=== PATIENT | female | born 1965 | race African-American/Black ===

== ENCOUNTER 2016-10-15 12:18 | Emergency (ER) | payer OTHER ==
[2016-10-15 12:23] VITALS: BMI 30.9
--- NOTE | 2016-10-15 12:49 | PDOC ---
History of Present Illness - General Chief Complaint: Palpitations Stated Complaint: PALPITATIONS Time Seen by Provider: 10/15/16 12:24 History Source: Patient - History of Present Illness Initial Comments: 10/15/16 12:57 CC: Palpitations Patient is a 51 y.o. female with a PMH of Graves Disease and SVT who presents to our facility today c/o palpitations and lightheadedness. 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 Patient denies any syncopal episode, chest pain or shortness of breath. Patient notes she has a h/o Graves Disease for which she was initially on a beta rand and Methamiazole however both were discontinued in 2015. Past History - Past Medical History Allergies/Adverse Reactions: Allergies Allergy/AdvReac Type Severity Reaction Status Date / Time Penicillins Allergy Verified 10/15/16 12:23 Home Medications: Ambulatory Orders Albuterol Sulfate Inhaler - [Ventolin Hfa Inhaler -] 1 - 2 inh PO Q4H 10/15/16 Atorvastatin Ca [Lipitor] 10 mg PO HS 10/15/16 Folic Acid - 1 mg PO DAILY 10/15/16 Lisinopril 10 mg PO DAILY 10/15/16 Metoprolol Succinate [Toprol Xl] 50 mg PO DAILY 10/15/16 Montelukast Na [Singulair -] 10 mg PO HS 10/15/16 Asthma: Yes Cardiac Disorders: Yes (SVT) HTN: Yes - Surgical History Abdominal Surgery: Yes (HERNIA REPAIR) - Psycho/Social/Smoking Cessation Hx Suicidal Ideation: No Smoking History: Never smoked Information on smoking cessation initiated: No Hx Alcohol Use: No Drug/Substance Use Hx: No Substance Use Type: None Review of Systems - Review of Systems Constitutional: No: Chills, Fever HEENTM: No: Blurred Vision, Throat Pain Respiratory: No: Cough, Orthopnea Cardiac (ROS): Yes: Lightheadedness, Palpitations. No: Chest Pain ABD/GI: No: Constipated, Diarrhea *Physical Exam - Vital Signs Last Vital Signs Temp Pulse Resp BP Pulse Ox 97.6 F 170 H 18 96/57 99 10/15/16 12:20 10/15/16 12:20 10/15/16 12:20 10/15/16 12:20 10/15/16 12:20 - Physical Exam General Appearance: Yes: Nourished, Appropriately Dressed HEENT: positive: EOMI, RONALD Neck: positive: Normal Thyroid, Supple Respiratory/Chest: positive: Lungs Clear, Normal Breath Sounds Cardiovascular: positive: Regular Rhythm, Regular Rate, S1, S2 Gastrointestinal/Abdominal: positive: Normal Bowel Sounds, Soft Extremity: positive: Normal Capillary Refill, Normal Inspection Neurologic: positive: service support representative II-XII NML intact, Fully Oriented, Alert ED Treatment Course - LABORATORY CBC & Chemistry Diagram: 10/15/16 13:13 10/15/16 13:13 Medical Decision Making - Medical Decision Making Patient is a 48 y.o. female who presents for palpitations. Patient's initial HR 170's at triage, during time of PE, HR resolved to 70's. Initial DDx includes SVT vs. Anxiety vs. ACS. EKG (reviewed by cardiology) showed NSR with no ST elevations. Patient's labs significant for elevated TSH and low T4 inconsistent with Graves Disease. 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 Patient stated she planned to see her PCP tomorrow (10/16) and was given a work note accordingly. Patient was advised to return to the ED should her symptoms resolve or she experience chest pain, shortness of breath, or severe discomfort. *DC/Admit/Observation/Transfer Diagnosis at time of Disposition: Tachycardia - Discharge Dispostion Disposition: HOME Condition at time of disposition: Good Admit: No - Referrals Referrals: Ananda Francisco [Primary Care Provider] - - Patient Instructions Printed Discharge Instructions: DI for Paroxysmal Supraventricular Tachycardia , DI for Tachycardia, DI for Graves Disease Additional Instructions: You were evaluated and treated for elevated heart rate, tachycardia. Your labs , attached here, show an elevated TSH and a low T4. Please take these lab values when being evaluated by your primary care physician tomorrow. Please return to the ED should you experience fever, chills, shortness of breath or severe discomfort. - Post Discharge Activity Work/School Note: Back to Work
[2016-10-15] MEDS ORDERED: SODIUM CHLORIDE 1,000 ML IV STA (13:31)
[2016-10-15 13:32] LABS: BASOPHIL 0.8 % (0-2.0); EOSINOPHIL 2.9 % (0-4.5); MCH 26.8 pg (25.7-33.7); MCHC 33.8 g/dl (32.0-36.0); MEAN CELL VOLUME 79.2 fl (80-96); MEAN PLT VOLUME 8.3 fl (7.5-11.1); PLATELET COUNT 365 K/MM3 (134-434); RDW 14.9 % (11.6-15.6); WHITE BLOOD COUNT 11.3 K/mm3 (4.0-10.0)
[2016-10-15 14:17] LABS: ALBUMIN 3.7 g/dl (3.4-5.0); ALK PHOS 132 U/L (45-117); ANION GAP 7 (8-16); BILIRUBIN,TOTAL 0.5 mg/dL (0.2-1.0); CALCIUM 9.3 mg/dL (8.5-10.1); CO2 26 mmol/L (21-32); CREATININE 0.9 mg/dL (0.55-1.02); GLUCOSE,RANDOM 72 mg/dL (74-106); SGPT/ALT 21 U/L (12-78); TOT PROT 7.8 g/dl (6.4-8.2)
[2016-10-15 14:22] LABS: ANION GAP 9 (8-16); CALCIUM 9.4 mg/dL (8.5-10.1); CO2 24 mmol/L (21-32); GLUCOSE,RANDOM 72 mg/dL (74-106); SGOT/AST 34 U/L (15-37)
--- NOTE | 2016-10-15 15:07 | PDOC ---
Attending Attestation - Resident Resident Name: Olga Christensen - ED Attending Attestation I have performed the following: I have examined & evaluated the patient, The case was reviewed & discussed with the resident, I agree w/resident's findings & plan, Exceptions are as noted - HPI HPI: 10/15/16 15:00 51 F with h/o grave's disease, SVT, presenting to ER with palpitations. Pt states that she was at work when the episode began. SHe states that she was under a lot of stress, and she believes this triggered the episode. Pt denies ever having CP/SOB. Endorses mild lightheadedness without syncope. She states that her symptoms persisted until she arrived to ER and abruptly improved while patient was being triaged. Pt now denies any complaints whatsoever. Denies palpitations. Pt denies substance use, no cocaine, no ETOH. Drinks 1 cup coffee per day. Pt denies F/C/N/V/D. Pt is followed by gynaecological oncologist Dr. Whitaker, who was previously treating her SVT with medication. They had discussed ablation but deferred it due to being well managed on meds. - Physicial Exam PE: 10/15/16 15:04 "GENERAL: Awake, alert, and fully oriented, in no acute distress HEAD: No signs of trauma EYES: PERRLA, EOMI, sclera anicteric, conjunctiva clear ENT: Auricles normal inspection, hearing grossly normal, nares patent, oropharynx clear without exudates. Moist mucosa NECK: Normal ROM, supple, no lymphadenopathy, JVD, or masses LUNGS: Breath sounds equal, clear to auscultation bilaterally. No wheezes, and no crackles HEART: Regular rate and rhythm, normal S1 and S2, no murmurs, rubs or gallops ABDOMEN: Soft, nontender, normoactive bowel sounds. No guarding, no rebound. No masses EXTREMITIES: Normal range of motion, no edema. No clubbing or cyanosis. No cords, erythema, or tenderness NEUROLOGICAL: Cranial nerves II through XII grossly intact. Normal speech, normal gait SKIN: Warm, Dry, normal turgor, no rashes or lesions noted. " - Medical Decision Making 10/15/16 15:21 51 F with h/o grave's, SVT presenting to ER with transient episode of palpitations. HR was 170 in triage, no EKG obtained at the time. Now HR 80s, EKG in normal sinus. Pt likely went into SVT and broke spontaneously. Will check labs, including thyroid function, and monitor pt. - Labs, TSH - lunchroom monitor - F/u cardiology if labs wnl Heart Score/ECG Review - ECG Impressions Comment:: 10/15/16 15:07 NSR rate 90s, no ELSIE/STDs, no TWIs, RBBB
[2016-10-15 15:36] LABS: FREE T4 0.65 ng/dl (0.76-1.46); THYROID STIMULATING HORMONE 5.94 uIU/ml (0.358-3.74)
--- NOTE | 2016-10-15 15:45 | EKG ---
Test Reason : Blood Pressure : / mmHG Vent. Rate : 094 BPM Atrial Rate : 094 BPM P-R Int : 184 ms QRS Dur : 130 ms QT Int : 376 ms P-R-T Axes : 069 -29 064 degrees QTc Int : 470 ms NORMAL SINUS RHYTHM RIGHT BUNDLE BRANCH BLOCK ABNORMAL ECG NO PREVIOUS ECGS AVAILABLE Confirmed by GELACIO BERMEO, SHERI ([id number]) on 10/15/2016 3:45:27 PM Referred By: Confirmed By:SHERI BRIZUELA MD
[2016-10-15 18:18] VITALS: BP 135/67; PULSE 77; TEMP 97.8
== END 2016-10-15 18:18 | disposition home or self-care (01) ==
LOC: JER 12:18
PROC: 3E0337Z Introduction of Electrolytic and Water Balance Substance into Peripheral Vein, Percutaneous Approach (ICD-10-PCS; principal; 2016-10-15)
DX: R00.0 Tachycardia, unspecified (principal); E05.00 Thyrotoxicosis with diffuse goiter without thyrotoxic crisis or storm
CPT/HCPCS: 36415; 80048; 80053; 84439; 84443; 85025; 93005; 93010; 99285-25

== ENCOUNTER 2017-06-03 13:13 | Emergency (ER) | payer OTHER ==
[2017-06-03 13:20] VITALS: TEMP 98; BMI 32.6
[2017-06-03] MEDS ORDERED: ADENOSINE 6 MG/2 ML VIAL IVPUSH ONE ×2 (13:27→13:36)
[2017-06-03] MEDS ORDERED: SODIUM CHLORIDE 1,000 ML IV STA (13:38)
--- NOTE | 2017-06-03 13:46 | PDOC ---
History of Present Illness - General Chief Complaint: Palpitations Stated Complaint: RAPID HEARTBEAT Time Seen by Provider: 06/03/17 13:24 - History of Present Illness Initial Comments: 06/03/17 14:15 The patient is a 52 year old female with a history of Hypothyroidism, SVT who presents for evaluation of rapid heart rate. The patient reports that she was at work today when she experienced the sensation that her heart rate increased similar to her prior episodes of SVT. She states that she forgot to take her metoprolol earlier this morning and took it at the onset of symptoms. She attempted to splash cold water on her face and put her head between her legs which did not help resolve her symptoms prompting her presentation to the ED for evaluation. 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 She otherwise denies fevers, chills, SOB, chest pain, lightheadedness, dizziness, nausea, vomiting, abdominal pain, or changes with urination or bowel movements. Past History - Past Medical History Allergies/Adverse Reactions: Allergies Allergy/AdvReac Type Severity Reaction Status Date / Time Penicillins Allergy Verified 06/03/17 13:20 Home Medications: Ambulatory Orders Atorvastatin Ca [Lipitor] 10 mg PO HS 10/15/16 Lisinopril 10 mg PO DAILY 10/15/16 Metoprolol Succinate [Toprol Xl] 50 mg PO DAILY 10/15/16 Levothyroxine [Synthroid -] 25 mcg PO DAILY 06/03/17 Asthma: Yes Cardiac Disorders: Yes (SVT) COPD: No HTN: Yes - Surgical History Abdominal Surgery: Yes (HERNIA REPAIR) - Suicide/Smoking/Psychosocial Hx Smoking History: Never smoked Information on smoking cessation initiated: No Hx Alcohol Use: No Drug/Substance Use Hx: No Substance Use Type: None Review of Systems - Review of Systems Comments:: 06/03/17 14:19 Constitutional: No fevers, chills, fatigue, malaise HEENT: No Rhinorrhea, nasal congestion, visual changes Cardiovascular: Palpitations, Rapid Heart Rate. No chest pain, syncope, lightheadedness Respiratory: No Cough, SOB, Hemoptysis, Gastrointestinal: No Abdominal pain, Nausea, Vomiting, Constipation, Diarrhea, Melena Genitourinary: No Dysuria, Frequency, Urgency, Hesitancy, Hematuria, Flank pain Musculoskeletal: No Myalgia, arthralgia Skin: No rashes, itching, bruising, pallor Neurologic: No Headache, Dizziness, Numbness, Weakness, or Tingling Psychiatric: No Hallucinations. No SI or HI *Physical Exam - Vital Signs Last Vital Signs Temp Pulse Resp BP Pulse Ox 98 F 164 H 19 143/99 98 06/03/17 13:17 06/03/17 13:17 06/03/17 13:17 06/03/17 13:17 06/03/17 13:17 - Physical Exam Comments: 06/03/17 14:20 General Appearance: Nourished. No Apparent Distress HEENT: EOMI, RONALD. No Pharyngeal Erythema, Tonsillar Exudate, Tonsillar Erythema Neck: No Cervical Lymphadenopathy Respiratory/Chest: Lungs Clear, Normal Breath Sounds. No Crackles, Rales, Rhonchi, Wheezing Cardiovascular: Regular Rhythm, Tachycardic. No Murmur, Gallops, Rubs Gastrointestinal/Abdominal: Normal Bowel Sounds, Soft. No Guarding, Rebound, Tenderness Musculoskeletal: No CVA Tenderness Extremity: Normal Capillary Refill Integumentary: Normal Color, Dry, Warm Neurologic: Fully Oriented, Alert, Normal Mood/Affect, Normal Response, Heart Score/ECG Review #1 ECG reviewed & interpreted by me at: 14:21 (SVT with a rate of 160s. RBBB, ST depressions in leads V3-v5) #2 ECG reviewed & interpreted by me at: 14:22 (RBBB, ST depressions in leads v3- v5 unchanged from prior) General ECG Interpretation: Sinus Rhythm, Normal Rate, Normal Intervals, No acute ischemic changes Compared to previous ECG there are: No significant change (10/15/16) ED Treatment Course - LABORATORY CBC & Chemistry Diagram: 06/03/17 13:20 06/03/17 13:20 Medical Decision Making - Medical Decision Making 06/03/17 14:23 The patient is a 52 year old female with a history of Hypothyroidism, SVT who presents for evaluation of rapid heart rate. Given the patient's EKG it is likely the patient is in SVT like her prior episodes although the differential includes but is not limited to: afib, aflutter, heart block. It is likely the patient went into SVT due to her underlying hypothyroidism and recent start of levothyroxin. The patient was given 6mg of adenosine with the patient converting to normal sinus rhythm at a rate of 85 with resolution of her symptoms. Repeat EKG demonstrates no changes from a prior done in 10/15/16. We will obtain a cbc, cmp, mag, tsh to evaluate further and continue to give the patient iv fluids. We will continue to monitor and reassess in the meantime. 06/03/17 15:15 CBC, cmp, mag, TSH are unremarkable. The patient reports significant improvement in her symptoms and continues to remain asymptomatic. The patient continues to maintain a normal sinus rhythm. We are comfortable discharging the patient home with cardiology follow up. We discussed the results, plan, and strict return precautions with the patient who voiced understanding and is agreeable with the plan. *DC/Admit/Observation/Transfer Diagnosis at time of Disposition: SVT (supraventricular tachycardia) - Discharge Dispostion Disposition: HOME Condition at time of disposition: Good Admit: No - Referrals Referrals: Ananda Francisco [Primary Care Provider] - - Patient Instructions Printed Discharge Instructions: DI for Paroxysmal Supraventricular Tachycardia Additional Instructions: Please return to the ER if you experience concerning or worsening symptoms including worsening palpitations, chest pain, lightheadedness, or difficulty breathing. Your lab results were normal here in the ER. Your symptoms were likely due to SVT and you received 6mg of adenosine here in the ED which resolved your symptoms. It is extremely important that you call to schedule a follow up appointment with your cable engineer outside plant at [facility] within 1-2 days to discuss your ER visit and further management of your symptoms. - Post Discharge Activity
--- NOTE | 2017-06-03 13:49 | PDOC ---
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 Pt denies any cp, sob, palpitations, notes occasional lightheadness but not currently, dnies recent illness, fever/chills, diarrhea, melena, bpr. on arrival, pt found to be tachy to 160s in triage she was immediatley sent to a room and placed on a monitor labs were obtained, IV placed pt was given some IVF w/o improvement of HR pt was given 6 of adenosine with breaking of SVT to NSR pt still on monitor, current HR approx 100 - Physicial Exam PE: exam upon arrival GENERAL: The patient is awake, alert, and fully oriented, Nontoxic - in no acute distress. HEAD: Normocephalic, atraumatic. EYES: extraocular movements intact, sclera anicteric, conjunctiva clear. ENT: Normal voice, Moist mucous membranes. NECK: Normal range of motion, supple LUNGS: Breath sounds equal, clear to auscultation bilaterally. No wheezes, no rhonchi, no rales. HEART: tachycardic ABDOMEN: Soft, nontender, normoactive bowel sounds. No guarding, no rebound. No CVA tenderness EXTREMITIES: Normal range of motion, no edema. NEUROLOGICAL: No facial assymetry, Normal speech, PSYCH: Normal mood, normal affect. SKIN: Warm, Dry, normal turgor, - Medical Decision Making 06/03/17 15:18 labs wnl pt nsr asymptomatic will dc with pmd/cards fu return precautions were dsicussed Heart Score/ECG Review - ECG Impressions Comment:: 06/03/17 13:49 ekg performed upon arrival Rate of [address] depressions in V3-V5 (present in previous ekg) impression: SVT repeat ekgperformed at 13:45 NSR, left axis deviation, RBBB rate of 95
[2017-06-03 13:53] LABS: BASO % 0.5 % (0-2.0); EOS % 0.9 % (0-4.5); HEMOGLOBIN 13.1 GM/dL (10.7-15.3); LYMPH % 25.5 % (8-40); MCH 27.5 pg (25.7-33.7); MCHC 34.4 g/dl (32.0-36.0); MEAN CELL VOLUME 79.8 fl (80-96); MEAN PLT VOLUME 8.5 fl (7.5-11.1); MONO % 9.9 % (3.8-10.2); NEUT % 63.2 % (42.8-82.8); PLATELET COUNT 338 K/MM3 (134-434); RBC 4.76 M/mm3 (3.60-5.2); RDW 14.9 % (11.6-15.6); WHITE BLOOD COUNT 12.6 K/mm3 (4.0-10.0)
[2017-06-03 14:18] LABS: ALBUMIN 3.7 g/dl (3.4-5.0); ANION GAP 8 (8-16); BLOOD UREA NITROGEN 10 mg/dL (7-18); CALCIUM 8.9 mg/dL (8.5-10.1); CHLORIDE 111 mmol/L (98-107); CO2 26 mmol/L (21-32); CREATININE 0.9 mg/dL (0.55-1.02); GLUCOSE,RANDOM 98 mg/dL (74-106); MAGNESIUM 2.2 mg/dL (1.8-2.4); POTASSIUM 4.1 mmol/L (3.5-5.1); SGOT/AST 45 U/L (15-37); SGPT/ALT 37 U/L (12-78); SODIUM 145 mmol/L (136-145)
[2017-06-03 14:19] LABS: ALK PHOS 163 U/L (45-117); BILIRUBIN,TOTAL 0.5 mg/dL (0.2-1.0); TOT PROT 7.7 g/dl (6.4-8.2)
--- NOTE | 2017-06-03 14:49 | EKG ---
Test Reason : Blood Pressure : / mmHG Vent. Rate : 095 BPM Atrial Rate : 095 BPM P-R Int : 178 ms QRS Dur : 122 ms QT Int : 368 ms P-R-T Axes : 057 -66 040 degrees QTc Int : 462 ms SINUS RHYTHM WITH PREMATURE VENTRICULAR COMPLEXES OR FUSION COMPLEXES LEFT AXIS DEVIATION RIGHT BUNDLE BRANCH BLOCK ABNORMAL ECG WHEN COMPARED WITH ECG OF 15-OCT-2016 12:29, FUSION COMPLEXES ARE NOW PRESENT PREMATURE VENTRICULAR COMPLEXES ARE NOW PRESENT Confirmed by SHERI BRIZUELA MD ([id number]) on 06/03/2017 2:49:36 PM Referred By: Confirmed By:SHERI BRIZUELA MD
[2017-06-03 15:14] VITALS: BP 98/65; PULSE 85
--- NOTE | 2017-06-08 13:59 | EKG ---
Test Reason : Blood Pressure : / mmHG Vent. Rate : 171 BPM Atrial Rate : 170 BPM P-R Int : 000 ms QRS Dur : 116 ms QT Int : 276 ms P-R-T Axes : 000 -80 062 degrees QTc Int : 465 ms SUPRAVENTRICULAR TACHYCARDIA LEFT AXIS DEVIATION PULMONARY DISEASE PATTERN RIGHT BUNDLE BRANCH BLOCK ABNORMAL ECG WHEN COMPARED WITH ECG OF 15-OCT-2016 12:29, VENT. RATE HAS INCREASED BY [address] NOW DEPRESSED IN ANTERIOR LEADS Confirmed by MD ZANDER, SREEKANTH ([id number]) on 06/08/2017 1:59:12 PM Referred By: Confirmed By:SREEKANTH FERMIN MD
== END 2017-06-03 15:14 | disposition home or self-care (01) ==
LOC: JER 13:13
PROC: 3E0337Z Introduction of Electrolytic and Water Balance Substance into Peripheral Vein, Percutaneous Approach (ICD-10-PCS; principal; 2017-06-03)
PROC: 3E033GC Introduction of Other Therapeutic Substance into Peripheral Vein, Percutaneous Approach (ICD-10-PCS; 2017-06-03)
DX: I47.1 Supraventricular tachycardia (principal); I10 Essential (primary) hypertension; E03.9 Hypothyroidism, unspecified; J45.909 Unspecified asthma, uncomplicated
CPT/HCPCS: 36415; 80053; 83735; 84443; 85025; 93005; 93010; 99284-25; J7030